=== PATIENT | female | born 1930 | race Caucasian/White ===

== ENCOUNTER 2016-10-06 19:52 | Inpatient (IN) | payer OTHER ==
[~2016-10-06] VITALS: Ht 152.4 cm; Wt 47.2 kg
[~2016-10-06 19:52] MED LIST: AMLODIPINE BESYL5 MG PO; CALCIUM 600 +1 EAC2 PO; CYANOCOBALAM1000 MCG PO; DOCUSATE SODIU100 MG PO; EFFEXOR XR37.5 MG PO; ENDOCET 5-3251 EACH PO; LISINOPRIL10 MG PO; LISINOPRIL5 MG PO; OMEPRAZOLE20 MG PO; PRENATAL TABLE1 EAC3 PO; VITAMIN D31000 UNIT PO; WELLBUTRIN XL150 MG PO
[2016-10-06 21:36] LABS: EOSINOPHIL (%) 0.5 % (0-5); EOSINOPHIL COUNT 0.1 K/uL (0-0.3); HEMATOCRIT 34.6 % (36.0-46.0); IMMATURE GRANULOCYTE (%) 0.9 % (0.0-0.7); IMMATURE GRANULOCYTE COUNT 0.1 K/uL; INSTRUMENT ABS NEUTROPHIL CT 8.8 K/uL; LYMPHOCYTE COUNT 0.9 K/uL (1.0-2.8); MCH 30.9 PG (29.0-34.0); MCHC 32.9 G/DL (30.0-36.0); MCV 93.8 FL (83-99); MEAN PLAT.VOLUME 10.9 uM^3 (9.5-12.4); MONOCYTE (%) 9.5 % (3-12); NEUTROPHIL (%) 80.8 % (45-76); NEUTROPHIL COUNT 8.8 K/uL (1.8-6.4); PLATELET COUNT 360 K/uL (156-360); RBC DIS.WIDTH-CV 15.1 % (11.8-14.6); RBC DIS.WIDTH-SD 52.1 % (39-53); RED BLOOD COUNT 3.69 M/uL (3.80-5.20); WHITE BLOOD COUNT 10.9 K/uL (4.1-10.2)
[2016-10-06 21:47] LABS: CHLORIDE 99 mEq/L (99-109); POTASSIUM 4.6 mEq/L (3.7-5.4); SODIUM 135 mEq/L (136-147)
[2016-10-06 21:50] LABS: ANION GAP 9 MEQ/L (2-14)
[2016-10-06 21:51] LABS: GLUCOSE 108 mg/dL (70-99); TOTAL BILIRUBIN 0.3 mg/dL (0.0-1.0)
[2016-10-06 21:53] LABS: ALKALINE PHOSPHATASE 181 IU/L (3-129); GFR ESTIMATE (CALCULATED) > 59 mL/min/
[2016-10-06 21:54] LABS: UREA NITROGEN (BUN) 25 mg/dL (9-23)
[2016-10-06] MEDS ORDERED: COLACE100 MG PO (22:29)
[2016-10-06] MEDS ORDERED: AMLODIPINE BESYL5 MG PO (22:30)
[2016-10-06] MEDS ORDERED: CEPHALEXIN500 MG PO (22:30)
[2016-10-06] MEDS ORDERED: PHILLIPS'400 MG/5 M PO (22:31)
[2016-10-06] MEDS ORDERED: FLORASTOR250 MG PO (22:31)
[2016-10-06] MEDS ORDERED: FLEET ENEMA-AD118 ML PR (22:31)
[2016-10-06] MEDS ORDERED: DULCOLAX10 MG PR (22:32)
[2016-10-07 06:10] LABS: EOSINOPHIL (%) 0.2 % (0-5); HEMATOCRIT 33.4 % (36.0-46.0); IMMATURE GRANULOCYTE (%) 0.5 % (0.0-0.7); IMMATURE GRANULOCYTE COUNT 0.1 K/uL; INSTRUMENT ABS NEUTROPHIL CT 7.8 K/uL; LYMPHOCYTE COUNT 0.9 K/uL (1.0-2.8); MCH 31.2 PG (29.0-34.0); MCHC 32.9 G/DL (30.0-36.0); MCV 94.6 FL (83-99); MEAN PLAT.VOLUME 11.5 uM^3 (9.5-12.4); MONOCYTE (%) 10.5 % (3-12); NEUTROPHIL (%) 79.3 % (45-76); NEUTROPHIL COUNT 7.8 K/uL (1.8-6.4); PLATELET COUNT 326 K/uL (156-360); RBC DIS.WIDTH-CV 15.1 % (11.8-14.6); RBC DIS.WIDTH-SD 52.7 % (39-53); RED BLOOD COUNT 3.53 M/uL (3.80-5.20); WHITE BLOOD COUNT 9.8 K/uL (4.1-10.2)
[2016-10-07 06:37] LABS: ANION GAP 8 MEQ/L (2-14); CHLORIDE 102 MEQ/L (99-109); GFR ESTIMATE (CALCULATED) > 59 mL/min/; GLUCOSE 99 mg/dL (70-99); POTASSIUM 4.7 MEQ/L (3.7-5.4); SAMPLE HEMOLYSIS CHECK 0; SAMPLE ICTERIC CHECK 0; SAMPLE LIPEMIA CHECK 0; SODIUM 138 MEQ/L (136-147); UREA NITROGEN (BUN) 22 mg/dL (9-23)
[2016-10-07 10:24] VITALS: BP 144/66
[2016-10-07 12:25] VITALS: BP 133/63
[2016-10-07 15:57] VITALS: BP 130/62
[2016-10-08 00:29] VITALS: BP 122/71
[2016-10-08 06:12] LABS: EOSINOPHIL (%) 0.8 % (0-5); EOSINOPHIL COUNT 0.1 K/uL (0-0.3); HEMATOCRIT 31.3 % (36.0-46.0); IMMATURE GRANULOCYTE (%) 0.7 % (0.0-0.7); IMMATURE GRANULOCYTE COUNT 0.1 K/uL; INSTRUMENT ABS NEUTROPHIL CT 6.5 K/uL; LYMPHOCYTE COUNT 1.1 K/uL (1.0-2.8); MCHC 33.9 G/DL (30.0-36.0); MCV 94.6 FL (83-99); MEAN PLAT.VOLUME 11.2 uM^3 (9.5-12.4); MONOCYTE (%) 13.4 % (3-12); MONOCYTE COUNT 1.2 K/uL (0-0.8); NEUTROPHIL (%) 72.5 % (45-76); NEUTROPHIL COUNT 6.5 K/uL (1.8-6.4); PLATELET COUNT 288 K/uL (156-360); RBC DIS.WIDTH-SD 51.8 % (39-53); RED BLOOD COUNT 3.31 M/uL (3.80-5.20); WHITE BLOOD COUNT 8.9 K/uL (4.1-10.2)
[2016-10-08 06:37] LABS: ANION GAP 9 MEQ/L (2-14); CHLORIDE 100 MEQ/L (99-109); GFR ESTIMATE (CALCULATED) > 59 mL/min/; GLUCOSE 85 mg/dL (70-99); POTASSIUM 4.2 MEQ/L (3.7-5.4); SAMPLE HEMOLYSIS CHECK 0; SAMPLE ICTERIC CHECK 0; SAMPLE LIPEMIA CHECK 0; SODIUM 136 MEQ/L (136-147); UREA NITROGEN (BUN) 18 mg/dL (9-23)
[2016-10-08 07:55] VITALS: BP 128/70
[2016-10-08 11:53] LABS: POINT-OF-CARE METER ID UU13113725
[2016-10-08 15:46] VITALS: BP 153/67
[2016-10-09 00:31] VITALS: BP 143/65
[2016-10-09 06:25] LABS: POINT-OF-CARE METER ID UU13113725
[2016-10-09 07:20] VITALS: BP 142/63
[2016-10-09 15:39] VITALS: BP 148/65
[2016-10-09 21:46] LABS: POINT-OF-CARE METER ID UU13113725
[2016-10-09 23:47] VITALS: BP 120/72
[2016-10-10 06:54] LABS: GFR ESTIMATE (CALCULATED) > 59 mL/min/
[2016-10-10 08:07] VITALS: BP 134/67
[2016-10-10 11:18] LABS: POINT-OF-CARE METER ID UU13113725
[2016-10-11 00:01] VITALS: BP 129/61
[2016-10-11 07:00] LABS: EOSINOPHIL (%) 0.4 % (0-5); HEMATOCRIT 34.6 % (36.0-46.0); IMMATURE GRANULOCYTE (%) 0.7 % (0.0-0.7); IMMATURE GRANULOCYTE COUNT 0.1 K/uL; INSTRUMENT ABS NEUTROPHIL CT 5.5 K/uL; LYMPHOCYTE COUNT 0.8 K/uL (1.0-2.8); MCHC 33.5 G/DL (30.0-36.0); MCV 92.5 FL (83-99); MEAN PLAT.VOLUME 10.7 uM^3 (9.5-12.4); MONOCYTE (%) 12.4 % (3-12); MONOCYTE COUNT 0.9 K/uL (0-0.8); NEUTROPHIL COUNT 5.5 K/uL (1.8-6.4); PLATELET COUNT 308 K/uL (156-360); RBC DIS.WIDTH-CV 14.6 % (11.8-14.6); RBC DIS.WIDTH-SD 49.7 % (39-53); RED BLOOD COUNT 3.74 M/uL (3.80-5.20); WHITE BLOOD COUNT 7.4 K/uL (4.1-10.2)
[2016-10-11 07:21] VITALS: BP 128/72
[2016-10-11 07:37] LABS: ANION GAP 9 MEQ/L (2-14); CHLORIDE 102 MEQ/L (99-109); GFR ESTIMATE (CALCULATED) > 59 mL/min/; GLUCOSE 101 mg/dL (70-99); POTASSIUM 4.1 MEQ/L (3.7-5.4); SAMPLE HEMOLYSIS CHECK 0; SAMPLE ICTERIC CHECK 0; SAMPLE LIPEMIA CHECK 0; SODIUM 135 MEQ/L (136-147); UREA NITROGEN (BUN) 11 mg/dL (9-23)
[2016-10-11 16:00] VITALS: BP 112/60
[2016-10-11 23:17] VITALS: BP 176/77
[2016-10-12 06:31] LABS: GFR ESTIMATE (CALCULATED) > 59 mL/min/
[2016-10-12 07:20] VITALS: BP 167/69
[2016-10-12] MEDS ORDERED: TYLENOL REGULA325 MG PO (13:46)
[2016-10-12] MEDS ORDERED: DOXYCYCLINE HY100 M3 PO (13:47)
[2016-10-12] MEDS ORDERED: ROCEPHIN1 GM/50 ML IV (14:17)
== END 2016-10-12 16:44 | DRG 256 ==
LOC: EME → EDBD 19:52 → EME 19:52 → EDSEX 19:52 → EDOF 22:56 → 5EAST 22:56 → ENRESERV 22:58 → EDOF 10-07 00:35 → 5EAST 10-07 00:40
PROVIDERS: Emergency Medicine; Family Medicine Sports Medicine
PROC: 0Y6U0Z0 Detachment at Left 3rd Toe, Complete, Open Approach (ICD-10-PCS; principal; 2016-10-08)
PROC: 0Y6W0Z0 Detachment at Left 4th Toe, Complete, Open Approach (ICD-10-PCS; principal; 2016-10-08)
PROC: 0Y6Y0Z0 Detachment at Left 5th Toe, Complete, Open Approach (ICD-10-PCS; principal; 2016-10-08)
DX: E11.52 Type 2 diabetes mellitus with diabetic peripheral angiopathy with gangrene (principal); I73.9 Peripheral vascular disease, unspecified; L03.116 Cellulitis of left lower limb; B95.62 Methicillin resistant Staphylococcus aureus infection as the cause of diseases classified elsewhere; L89.899 Pressure ulcer of other site, unspecified stage; M20.5X2 Other deformities of toe(s) (acquired), left foot; N39.0 Urinary tract infection, site not specified; I12.9 Hypertensive chronic kidney disease with stage 1 through stage 4 chronic kidney disease, or unspecified chronic kidney disease; E11.22 Type 2 diabetes mellitus with diabetic chronic kidney disease; N18.1 Chronic kidney disease, stage 1; I25.10 Atherosclerotic heart disease of native coronary artery without angina pectoris; D64.9 Anemia, unspecified; F03.90 Unspecified dementia, unspecified severity, without behavioral disturbance, psychotic disturbance, mood disturbance, and anxiety; F41.9 Anxiety disorder, unspecified; K21.9 Gastro-esophageal reflux disease without esophagitis; F32.9 Major depressive disorder, single episode, unspecified; M19.90 Unspecified osteoarthritis, unspecified site; Z66 Do not resuscitate; Z85.42 Personal history of malignant neoplasm of other parts of uterus
CPT/HCPCS: 36415; 80048; 80053; 80202; 82565; 82948; 83605; 85025; 87040; 87070; 87075; 87077; 87147; 87186; 87205; 87801; 88305; 93005; 99281; 99285; C1753; J0131; J0360; J0692; J1650; J2543; J3010; J3370; J7050